=== PATIENT | female | born 1985 ===

== ENCOUNTER 2016-10-12 01:04 | Emergency (ER) | payer OTHER ==
[2016-10-12 01:45] VITALS: BMI 30.5
[2016-10-12 01:59] LABS: RBC URINE < 1 /hpf (0-3); URINE BILIRUBIN NEGATIVE (NEGATIVE); URINE BLOOD NEGATIVE (NEGATIVE); URINE COLOR YELLOW (YELLOW); URINE GLUCOSE (UA) NEG (Normal); URINE KETONE NEGATIVE (NEGATIVE); URINE LEUKOCYTE ESTERASE NEG Leu/uL (Negative); URINE PROTEIN NEGATIVE (NEGATIVE); WBC URINE 2 /hpf (0-5)
[2016-10-12] MEDS: Lactated Ringer's 1,000 ML IV SCH ×2 (02:12→03:09)
--- NOTE | 2016-10-12 04:22 | OBDCSUM ---
Datetime: 10/12/2016 04:14 Discharged to, Provider: Home Follow up at, Provider: [facility] Disch Instr Activity: Normal activity Disch Instr Diet: Regular Discharge Instructions, Provider: Routine instructions given Discharge Time: 10/12/2016 04:14 Follow up in weeks, Provider: 10/15/2016 Disch Referrals: None Contraception discussed, Prov: Yes Disch Activity Restrictions: No lifting Discharge Diagnosis Prov Other: Abdominal pain at 37+ 4 wks
== END 2016-10-12 04:15 | disposition home or self-care (01) ==
LOC: H.EROB2 01:04
DX: O47.1 False labor at or after 37 completed weeks of gestation (principal); Z3A.37 37 weeks gestation of pregnancy; Z87.59 Personal history of other complications of pregnancy, childbirth and the puerperium